=== PATIENT | male | born 1960 | race Caucasian/White ===

== ENCOUNTER → 2023-02-13 14:58 | Outpatient (CLI) | payer MEDICARE, SELFPAY ==
--- NOTE | ~2023-02-13 | XR_ITS ---
EXAMINATION: XR knee RT min 4V DATE: 02/13/2023 15:14 INDICATION: Right knee pain. TECHNIQUE: 4 views of right knee including standing views were obtained. COMPARISON: None. FINDINGS: Bone alignment is normal. No fracture. There is mild tricompartmental osteoarthritis. There is a small knee joint effusion. IMPRESSION: 1. Mild right knee osteoarthritis. 2. Small right knee joint effusion. Reviewed, dictated and finalized at location A.
--- NOTE | ~2023-02-13 | XR_ITS ---
EXAMINATION: XR knee LT min 4V DATE: 02/13/2023 15:13 INDICATION: Left knee pain. TECHNIQUE: 4 views of left knee including standing views were obtained. COMPARISON: None. FINDINGS: Bone alignment is normal. No fracture. There is mild tricompartmental osteoarthritis. No kn ee joint effusion. IMPRESSION: 1. Mild left knee osteoarthritis. Reviewed, dictated and finalized at location A.
== END ==
PROVIDERS: PCP Family Medicine; Visit Provider Family Medicine
DX: M25.562 Pain in left knee (principal); M25.561 Pain in right knee; M17.0 Bilateral primary osteoarthritis of knee; M25.461 Effusion, right knee
CPT/HCPCS: 73564

== ENCOUNTER 2023-03-25 09:00 | Outpatient (RCR) | payer MEDICARE, SELFPAY ==
--- NOTE | 2023-02-25 09:43 | OPREHPOC ---
Outpatient Therapy Plan of Care This is a Multidisciplinary Plan of Care that may contain components documented by all disciplines (PT, OT, and ST.) PT Problem 1 PT Problem #1 Knowledge Deficit PT Goal 1 Goal Pt to be IND with issued HEP Target Visit 4 PT Problem 2 PT Problem #2 Pain PT Goal 1 Goal Pt to report lorraine knee pain no greater than 3/10 in the last week Target Visit 4 PT Goal 2 Goal Pt to report 50% improvement in overall symptoms Target Visit 4 PT Problem 3 PT Problem #3 Impaired Strength PT Goal 1 Goal Pt to improve hip abduction strength to grossly 4+ /5 to improve knee stability with functional tasks Target Visit 4 PT Goal 2 Goal Pt to be able to lift and carry 20lb from the ground to simulate working on home improvement projects.
--- NOTE | 2023-02-25 09:43 | PTOPEVAL1 ---
Assessment and note entered by Azalea Kendall, PT, DPT Evaluation Information Assessment Status Evaluation Diagnosis lorraine knee pain Onset chronic Subjective Information Pt reports lorraine knee pain and imaging shows slight osteoarthritis. He states he was given a prescription of Meloxicam. He states the only time his knees hurt is getting up and down from the ground, going down stairs, and when walking on an incline/decline. He reports his L knee is worse than his R. Pt is retired, he likes to golf and work in his yard. Reported Pain Level Pain Score 0: Self Report Assessment PT Clinical Summary Glenn presents to therapy today for his initial evaluation with a diagnosis of lorraine knee pain. Today he demonstrates good knee ROM and strength lorraine. He does have some decreased mobility and lateral hip strength affecting his knee alignment during functional movements like stairs and floor transfers. Skilled therapy services are indicated to address the deficits noted above, to decreased pain, and to return to PLOF. Plan of Care Interventions Electrical Stimulation,Gait Training,Hot Pack/Cold Pack,Manual Therapy,Neuro Re-education,Patient/ Caregiver Educati,Therapeutic Activities, Therapeutic Exercise PT Services Indicated Yes Treatment Frequency and 1x/wk for 4 visits Duration These treatments will address the objective and functional deficits as defined above. The patient will be advanced safely and appropriately in order for the patient to progress towards his/her prior level of function. Additional exercises will be introduced and as well as a comprehensive home exercise program upon discharge, if needed, ?to ensure carryover of functional gains achieved in the clinic. This treatment plan has been reviewed and agreement upon by the patient.
--- NOTE | 2023-03-19 09:08 | PCPTNOTE ---
Patient no showed to appointment this date. Called and spoke with patient who states he thought his appointment was at a different time.
--- NOTE | 2023-03-25 09:44 | PTOPDC ---
Assessment and note entered by Azalea Kendall, PT, DPT Evaluation Information Assessment Status Discharge Diagnosis lorraine knee pain Onset chronic Subjective Information Pt states he thinks everything is going really well. He states he is still taking the Meloxicam, but is able to squat down and do stairs without any issues. Reported Pain Level Pain Score 0: Self Report Assessment PT Clinical Summary Glenn presents to therapy today for his progress report following 4 visits of skilled therpay to treat her lorraine knee pain. Today he demonstrates good knee ROM and strength lorraine. He demonstrates improved hip stability, improved functional mobility, and reports decreased pain. He has met all of his therapy goals and no longer requires skilled therapy services.
== END 2023-03-25 10:43 | disposition home or self-care (01) ==
LOC: ANHGOSHPT 09:00
PROVIDERS: PCP Family Medicine; Visit Provider Family Medicine
DX: M25.562 Pain in left knee (principal); M25.561 Pain in right knee
CPT/HCPCS: 97110; 97112; 97161; 97530; 99199

== ENCOUNTER 2023-09-23 07:29 | Outpatient (CLI) | payer MEDICARE, SELFPAY ==
--- NOTE | ~2023-09-23 | NM_ITS ---
EXAMINATION: NM avelina stress w perfusion DATE: 09/23/2023 11:29 INDICATION: Other forms of dyspnea TECHNIQUE: Rest images were obtained following intravenous administration of 9.9 mCi Tc99m tetrofosmi n (Myoview). The patient was infused intravenously with Lexiscan (Regadenoson). Then, 30 mCi Tc99m te trofosmin (Myoview) was administered intravenously, and stress images were obtained. Data was reconst ructed into short axis and horizontal and vertical long axis SPECT images. Gated SPECT images were al so obtained. COMPARISON: None. FINDINGS: There is no definite reversible or fixed perfusion abnormality to suggest ischemia or infar ction. There is normal left ventricular chamber size, wall motion and ejection fraction. Left ventr icular ejection fraction measures >70%. IMPRESSION: 1. Normal myocardial perfusion at rest and during stress. 2. Left ventricular ejection fraction measuring >70%. Reviewed, dictated and finalized at location A.
--- NOTE | 2023-09-23 07:34 | ECHO_ITS ---
Patient Info Name: Glenn Hoffman Age: 63 years : 1960 Gender: Male Ht: 73 in Wt: 240 lbs BSA: 2.40 m2 HR: 83 bpm BP: 146 / 92 mmHg Heart Rhythm: Sinus Rhythm Technical Quality: Good Exam Date: 09/23/2023 7:38 AM Exam Location: Echo Lab Patient Status: Outpatient Admit Date: 09/23/2023 Staff Ordering Physician: Alex Lim DO Personal Development Mentor: Soraya Scales RDCS Attending Provider: Alex Lim DO Referring Physician: Raphael REAL; Exam Type: CA echo doppler color flow Study Info Indications R06.09 - Other forms of dyspnea Complete two-dimensional, color flow and Doppler transthoracic echocardiogram is performed. Summary 1. Complete two-dimensional, color flow and Doppler transthoracic echocardiogram is performed. 2. Left ventricular chamber dimension is normal. 3. Left ventricular systolic function is normal, estimated at 60-65%. 4. The left ventricular diastolic function is grade I diastolic dysfunction. 5. E/e' 13 is mildly elevated. 6. Left atrial chamber dimension is mildly enlarged. 7. Right atrial chamber dimension is mildly enlarged. 8. No pulmonary hypertension, estimated pulmonary arterial systolic pressure is 33 mmHg. Left Ventricle E/e' 13 is mildly elevated. Left ventricular chamber dimension is normal. Left ventricular systolic function is normal, estimated at 60-65%. The left ventricular diastolic function is grade I diastolic dysfunction. Right Ventricle Right ventricular systolic function is normal and with normal TAPSE 2.1 cm. Right ventricular chamber dimension is normal. Left Atria Left atrial chamber dimension is mildly enlarged. Right Atria Right atrial chamber dimension is mildly enlarged. Aortic Valve The aortic valve is trileaflet. There is no aortic valve stenosis. There is no aortic valve regurgitation. Pulmonic Valve There is no pulmonic regurgitation. Mitral Valve There is no mitral valve stenosis. There is no mitral valve regurgitation. Tricuspid Valve There is no tricuspid valve regurgitation. No pulmonary hypertension, estimated pulmonary arterial systolic pressure is 33 mmHg. Pericardium/Pleural There is no pericardial effusion. Inferior Vena Cava Normal inferior vena cava with >50% collapse upon inspiration consistent with normal right atrial pressure, 5 mmHg. Aorta The aortic root size at the sinus of Valsalva is normal. Left Ventricular Outflow Tract Name Value Normal LVOT 2D LVOT Diameter 2.0 cm LVOT Doppler LVOT Peak Gradient 5 mmHg LVOT Mean Gradient 2 mmHg LVOT VTI 22 cm LVOT VTI/AV VTI Ratio 0.7 LVOT Stroke Volume 71 ml LVOT CO 5.1 l/min LVOT CI 2.1 l/min/m2 Pulmonic Valve Name Value Normal RVOT Doppler RVOT Peak Gradient 1 mmHg
--- NOTE | 2023-09-23 08:06 | EST_ITS ---
Patient Info Name: Glenn Hoffman Age: 63 years : 1960 Gender: Male Ht: 73 in Wt: 240 lbs BSA: 2.40 m2 HR: 75 bpm BP: 141 / 97 mmHg Heart Rhythm: Sinus Rhythm Exam Date: 09/23/2023 9:51 AM Exam Location: Echo Lab Patient Status: Outpatient Admit Date: 09/23/2023 Staff Ordering Physician: Alex Lim DO Attending Provider: Alex Lim DO Exercise Technologist: Quiana Blakely CT Exercise Physician: Christian Betancourt DO Exam Type: CA stress avelina w NM Study Info Indications R06.09 - Other forms of dyspnea A regadenoson stress test was performed. Summary 1. 1. Negative lexiscan stress test for ischemic ST changes by ECG criteria. 2. 2. Stable hemodynamics throughout the test. 3. 3. Nuclear scan to follow and will be reported separately. Please correlate with it. 4. 4. Patient informed of the above results. Protocol: Lexiscan Stress ECG Details Stage: REST Duration (min): 5 min : 28 sec HR (bpm): 79 SBP (mmHg): 141 DBP (mmHg): 97 Stage: REST Duration (min): 9 min : 51 sec HR (bpm): 83 SBP (mmHg): 141 DBP (mmHg): 97 Stage: STAGE 1 Duration (min): 1 min : 0 sec HR (bpm): 98 SBP (mmHg): 141 DBP (mmHg): 97 Stage: RECOVERY Duration (min): 1 min : 0 sec HR (bpm): 101 SBP (mmHg): 141 DBP (mmHg): 97 Stage: RECOVERY Duration (min): 2 min : 0 sec HR (bpm): 96 SBP (mmHg): 141 DBP (mmHg): 97 Stage: RECOVERY Duration (min): 3 min : 0 sec HR (bpm): 94 SBP (mmHg): 110 DBP (mmHg): 86 Stage: RECOVERY Duration (min): 3 min : 47 sec HR (bpm): 92 SBP (mmHg): 110 DBP (mmHg): 86 Rest HR: 83 bpm Peak HR: 101 bpm Rest Sys BP: 141 mmHg Peak Sys BP: 110 mmHg Max Pred HR: 155 bpm % Max Pred HR: 65 % Target HR: 132 bpm Max RPP: 11,110 bpm*mmHg Termination Reason: Completed protocol Cardiac Symptoms: Shortness of breath Total Time: 1 min : 0 sec Rest Sweeney BP: 97 mmHg Peak Sweeney BP: 86 mmHg Total Dose: 0.4 mg Resting ECG Sinus rhythm, RBBB. Stress ECG No ST changes. Arrhythmias None. Report Signatures
== END 2023-09-23 07:30 | disposition home or self-care (01) ==
PROVIDERS: PCP Family Medicine; Visit Provider Family Medicine
DX: R06.09 Other forms of dyspnea (principal); R93.1 Abnormal findings on diagnostic imaging of heart and coronary circulation; I51.7 Cardiomegaly
CPT/HCPCS: 78452; 93017; 93306; A9502; J2785